=== PATIENT | male | born 1990 | race American Indian/Alaskan Native ===

== ENCOUNTER 2023-06-28 14:56 | Inpatient (IN) | payer MEDICAID ==
--- OUTSIDE RECORDS SUMMARY | 2023-06-28 14:59 | XMS REPORT | Continuity of Care Document ---
Author Name Unknown Address [address] [facility]. [address] [place] [address] [facility] thconnect Address [address] [facility] [address] [place] [address] Care Team Providers Care Stave And Bolt Equalizer Name Role Phone COLLINS PARKER Attending Clinician Unavailable AUNDREA XIE Attending Clinician Unavailable KRISTINA MARTIN Attending Clinician Unavailable JEANIE MARIA Attending Clinician Unava ilable CHRETIEN_F Attending Clinician Unavailable CHRETIEN_F Admitting Clinician Unavailable Payers Payer Name Policy Type Policy Number Effective Date Expirati on Date Source KCA SIGNATURE O 7 [id number] 2023 00:00:00 WE[employer]ARE [place] CLASSIC [place] PREMIUM R2T [id number] 2022 00:00:00 [employer] [place]MEDICARE REPLACEMENT/ADVANT AGE - HMO) [id number] 2022 00:00:00 Problems Condition Name Condition Details Condition Category Status Onset Date Resolution Date Last Treatment Date Treating Clinician Comments Source Abscess of back Abscess of back Disease Active 06-27 00:00: 00 Mitali Pereira Externa l Autism ([facility]) Autism ([facility]) Disease Active Mitali Wlilis - Externa l Obesity Obesity Disease Active Mitali Pereira Externa l Social History Social Habit Start Date Stop Date Quantity Comments Source Sexual orientation Laura Willis - External Alcoholic beverage intake 2023-06-28 00:00:00 2023-06-28 00:00:00 Current drinker of alcohol (finding) Mitali Willis - External History of Social function 2023-06-28 00:00:00 2023-06-28 00:00:00 Mitali Lamb Education - What is the highest level of school you have completed or the highest degree you have received? 2023-06-28 00:00:00 2023-06-28 00:00:00 Associate degree: academic program Mitali Pereira External Alcohol Comment 2023-06-28 00:00:00 2023-06-28 00:00:00 occasionally Mitali Willis - External Tobacco use and exposure 2022-05-18 00:00:00 2022-05-18 00:00:00 Smokeless tobacco non-user Mitali Willis - External Alcohol intake 2022-05-18 00:00:00 2022-05-18 00:00:00 Current drinker of alcohol (finding) Mitali Willis - Adonis Sex assigned at 1990 00:00:00 1990 00:00:00 Mitali Pereira External Smoking Status Start Date Stop Date Source Never smoked tobacco Mitali Willis - External Medications Ordered Medication Name Filled Medication Name Start Date Stop Date Current Medication? Ordering Clinician Indication Dosage Frequency Signature (SIG) Comments Components Source Cephalexin 500 MG oral Capsule 06-24 00:00: 00 Yes 500mg Take 1 capsule (500 mg total) by mouth 2 times daily. Mitali carrillo TRIMETHOPRI M-SULFAMETH OXAZOLE (BACTRIM DS) 800-160 MG oral Tablet 06-24 00:00: 00 Yes 1{tbl} Take 1 tablet by mouth every 12 hours. Mitali carrillo KETOCONAZOL E, TOPICAL, 2 % apply externally Shampoo 05-20 00:00: 00 06-27 00:00 :00 No [id number] 10mL Apply 10 mL topically twice a week Mitali carrillo methylPREDN ISolone 4 MG oral Tablet Therapy Pack 05-18 00:00: 00 Yes [id number] 1{luis} Take 1 luis by mouth See Admin Instructio ns Use as directed Mitali carrillo Benzonatate 100 MG oral Capsule 05-18 00:00: 00 06-27 00:00 :00 No [id number] 100mg [id number] 3D Take 1 capsule (100 mg total) by mouth every 8 hours as needed for cough Mitali carrillo Fluocinonid e 0.05 % apply externally Solution 05-18 00:00: 00 06-27 00:00 :00 No [id number] Apply 1 applicatio n. topically 2 times daily Mitali carrillo methylPREDN ISolone 4 MG oral Tablet Therapy Pack 05-18 00:00: 00 06-27 00:00 :00 No [id number] 1{luis} Take 1 luis by mouth See Admin Instructio ns Use as directed Mitali carrillo Azithromyci n 250 MG oral Tablet 05-18 00:00: 00 05-24 04:59 :00 No [id number] Take 2 tablets by mouth on day 1 then 1 tablet by mouth daily for 4 days thereafter . Mitali carrillo Immunizations Ordered Immunization Name Filled Immunization Name Date Status Comments Source Influenza Virus Vaccine, Quad, Egg Free 2021-02-03 00:00:00 Completed Mitali Pereira External Influenza Virus Vaccine, Quad, Egg Free Unknown Completed Mitali Pereira External Influenza Virus Vaccine, age 6 months and up Unknown Completed Mitali Pereira External Tdap- (Boostrix, Adacel) Unknown Completed Mitali Willis - External Vital Signs Vital Name Observation Time Observation Value Comments S ource Systolic blood pressure 2023-06-28 18:56:00 110 mm[Hg] Mitali Guan ld - External Diastolic blood pressure 2023-06-28 18:56:00 70 mm[Hg] Mitali myers - External Heart rate 2023-06-28 18:31:00 112 /min Cristi Willis - External Body temperature 2023-06-28 18:31:00 37.5 Tanya Mitali Willis - External Respiratory rate 2023-06-28 18:31:00 22 /min Mitali Willis - External Body height 2023-06-28 18:31:00 180.3 cm Taya Willis - External Body weight 2023-06-28 18:31:00 112.492 kg Taya ey Seybold - External BMI 2023-06-28 18:31:00 34.59 kg/m2 Taya ey Seybold - External Systolic blood pressure 2022-05-18 20:41:00 118 mm[Hg] Mitali Seybo ld - External Diastolic blood pressure 2022-05-18 20:41:00 60 mm[Hg] Mitali Bassybo ld - External Heart rate 2022-05-18 20:41:00 90 /min Cristi y Seybold - External Body temperature 2022-05-18 20:41:00 36.61 Tanya Mitali Seybold - External Respiratory rate 2022-05-18 20:41:00 16 /min Mitali Seybold - External Body height 2022-05-18 20:41:00 180.3 cm Taya ey Seybold - External Body weight 2022-05-18 20:41:00 110.678 kg Taya ey Seybold - External BMI 2022-05-18 20:41:00 34.03 kg/m2 Taya grover Seybold - External Oxygen saturation in Arterial blood by Pulse oximetry 2022-05-18 20:41:00 97 /min Mitali Sheltono ld - External Encounters Start Date/Time End Date/Time Encounter Type Admission Type Attending [facility] Facility Care Department Encounter ID Source 2023-07-04 14:20:00 2023-07-04 14:20:00 [id number] 13:00:00 2023-06-29 13:00:00 Outpatient COLLINS PARKER [id number] Mitali [facility] 2023-06-28 13:45:00 2023-06-28 13:45:00 Outpatient AUNDREA XIE [id number] Mitali [facility] 2023-06-25 00:00:00 2023-06-25 00:00:00 Outpatient KRISTINA MARTIN [id number] Mitali [facility] 2022-10-15 00:00:00 2022-10-15 00:00:00 Outpatient JEANIE MARIA [id number] Mitali [facility] 2022-05-18 16:00:00 2022-05-18 16:00:00 Outpatient JEANIE MARIA [id number] Mitali Willis 2022-05-04 00:00:00 2022-05-04 00:00:00 Outpatient CHRETIEN[facility]F [facility] [id number] [facility] 2022-05-04 00:00:00 2022-05-04 00:00:00 Outpatient CHRETIEN[facility]F [facility] [id number] [facility]
[2023-06-28 16:49] LABS: Absolute Eosinophils 0.4 K/uL (0-0.5); Absolute Lymphocytes (CBC) 1.9 K/uL (0.7-4.9); Absolute Monocytes 1.1 K/uL (0.1-1.3); Absolute Neutrophil 12.2 K/uL (1.8-8.0); Basophils % 0.3 % (0-1.3); Eosinophils % 2.3 % (0-4.4); Hematocrit 41.5 % (39.6-49.0); Hemoglobin 13.1 g/dL (13.6-17.9); Lymphocytes % 12.3 % (15.3-44.8); MCH 24.7 pg (27.0-35.0); MCHC 31.7 g/dL (32.0-36.0); MCV 77.9 fL (80-100); MPV 6.3 fL (7.6-11.3); Monocytes % 7.1 % (3.3-12.3); Platelets 529 thou/uL (152-406); RBC Red Blood Cell Count 5.33 M/uL (4.33-5.43); Red Cell Distribution Width 15.1 % (12.1-15.2)
[2023-06-28 16:52] LABS: PT Prothrombin Time 14.6 SECONDS (9.5-12.5); PTT, Activated Partial Thromb 28.1 SECONDS (24.3-36.9); Protime INR 1.34
[2023-06-28 17:03] LABS: Albumin 3.3 g/dL (3.4-5.0); Albumin/Globulin Ratio 0.7 (1.1-1.8); Anion Gap 9.8 mEq/L (5.0-15.0); Bilirubin Total 0.5 mg/dL (0.2-1.0); Globulin 4.8 g/dL (2.3-3.5); Potassium 3.8 mEq/L (3.5-5.1); Protein, Total 8.1 g/dL (6.4-8.2)
[2023-06-28] MEDS ORDERED: KETOROLAC 30 MG/ML INJ ONE (17:16)
[2023-06-28] MEDS ORDERED: CEFEPIME 1 GM/VIAL ONE (17:38)
[2023-06-28] MEDS ORDERED: NA CHLORIDE 0.9% 1,000 ML ONE (17:38)
--- NOTE | 2023-06-28 17:41 | ER ---
Nurse's Notes [facility] Name: Eugene Frazier Age: 32 yrs Sex: Male : 1990 Arrival Date: 06/28/2023 Time: 14:56 Bed 16 Private MD: Diagnosis: Cutaneous abscess, unspecified;Cellulitis of back [any part except buttock] Presentation: 06/27 15:06 Chief complaint: Patient states: pt was sent by doctor to look at an abscess on his as6 back. Coronavirus screen: At this time, the client does not indicate any symptoms associated with coronavirus-19. Ebola Screen: No symptoms or risks identified at this time. Initial Sepsis Screen: Does the patient meet any 2 criteria? HR > 90 bpm. Does the patient have a suspected source of infection? No. Patient's initial sepsis screen is negative. Risk Assessment: Do you want to hurt yourself or someone else? Patient reports no desire to harm self or others. Onset of symptoms was June 28, 2023. 15:06 Acuity: COLETTE 2 as6 15:06 Method Of Arrival: Ambulatory as6 Triage Assessment: 15:10 General: Appears uncomfortable, Behavior is cooperative, appropriate for age, flat. bp Pain: Complains of pain in back. EENT: No deficits noted. Derm: Abscess located on back. Historical: - Allergies: 15:06 No Known Allergies; as6 - PMHx: 15:06 None; as6 - PSHx: 15:06 None; as6 - Immunization history:: Adult Immunizations up to date. - Infectious Disease History:: Denies. - Social history:: Smoking status: Patient denies any tobacco usage or history of. Screenin:10 [facility] ED Fall Risk Assessment (Adult) History of falling in the last 3 months, bp including since admission No falls in past 3 months (0 pts). Abuse screen: Denies threats or abuse. Denies injuries from another. Nutritional screening: No deficits noted. Tuberculosis screening: No symptoms or risk factors identified. Assessment: 15:10 General: SEE TRIAGE NOTE. Pain: Complains of pain in back. Neuro: Level of bp Consciousness is awake, alert, obeys commands, Oriented to Appropriate for age. Derm: Abscess located on back. 17:00 Reassessment: No changes from previously documented assessment. Patient is alert, bp oriented x 3, equal unlabored respirations, skin warm/dry/pink. 18:10 Reassessment: REPORT FAXED TO 211. bp 19:00 General: Appears in no apparent distress. uncomfortable, Behavior is calm, cooperative. bp Pain: Complains of pain in back Pain does not radiate. Pain currently is 3 out of 10 on a pain scale. Quality of pain is described as stinging, Pain began suddenly, Is continuous. 19:00 Neuro: Level of Consciousness is awake, alert, obeys commands, Oriented to person, bp place, time, situation. Cardiovascular: Heart tones S1 S2 present Capillary refill < 3 seconds Clubbing of nail beds is absent JVD is absent Patient's skin is warm and dry. Respiratory: Airway is patent Trachea midline Respiratory effort is even, unlabored, Respiratory pattern is regular, symmetrical, Breath sounds are clear bilaterally. GI: Abdomen is round non-distended, Bowel sounds present X 4 quads. Abd is soft and non tender X 4 quads. : No deficits noted. No signs and/or symptoms were reported regarding the genitourinary system. EENT: No deficits noted. No signs and/or symptoms were reported regarding the EENT system. Derm: Skin is healthy with good turgor, Skin is dry, Skin is normal, Skin temperature is warm Abscess located on back. Musculoskeletal: Circulation, motion, and sensation intact. Range of motion: intact in all extremities. Vital Signs: 15:05 BP 135 / 85; Pulse 125; Resp 20 S; Temp 98.8(TE); Pulse Ox 100% on R/A; Weight 113.4 kg as6 (R); Height 5 ft. 11 in. (R); Pain 4/10; 17:00 BP 121 / 80; Pulse 106; Resp 16; Pulse Ox 100% ; bp 18:30 BP 123 / 88; Pulse 110; Resp 16; Pulse Ox 100% ; bp 19:00 BP 125 / 82; Pulse 105; Resp 17 S; Pulse Ox 100% on R/A; bp 15:05 Body Mass Index 34.87 (113.40 kg, 180.34 cm) as6 15:05 Pain Scale: Adult as6 ED Course: 15:02 Patient arrived in ED. mg5 15:03 Eddie Reddy PA is PHCP. cp 15:03 Tre Flood MD is Attending Physician. cp 15:06 Arm band placed on right wrist. as6 15:07 Triage completed. as6 15:10 Patient has correct armband on for positive identification. bp 15:10 No provider procedures requiring assistance completed. Patient admitted, IV remains in bp place. 15:31 Bipin Etienne, RN is Primary Nurse. bp 16:34 Inserted saline lock: 22 gauge in left forearm, using aseptic technique. Blood bp collected. 16:34 CBC with Diff Sent. bp 16:34 CMP Sent. bp 16:34 Lactate w/ 2H reflex if indic. Sent. bp 16:34 Protime (+inr) Sent. bp 16:34 Ptt, Activated Sent. bp 16:52 CBC with Diff Sent. bp 16:52 CMP Sent. bp 16:52 Lactate w/ 2H reflex if indic. Sent. bp 16:52 Protime (+inr) Sent. bp 16:52 Ptt, Activated Sent. bp 17:39 Alpa Barger MD is Hospitalizing Provider. cp 17:54 Blood Culture Adult (2) Sent. bp 17:55 XRAY Chest (1 view) In Process Unspecified. EDMS 19:00 Provided Education on: USE OF CALL LIGHT. bp Administered Medications: 17:00 Drug: Ketorolac IVP 15 mg IVP once Route: IVP; Site: left forearm; bp 18:51 Follow up: Response: No adverse reaction bp 17:30 Drug: NS 0.9% IV 1000 ml IV at 1 bolus Per protocol; 1000 mL bolus Route: IV; Rate: 1 bp bolus; Site: left forearm; 18:51 Follow up: IV Status: Completed infusion; IV Intake: 1000ml bp 17:54 Drug: Cefepime IVPB 1 grams IVPB at 200 ml/hr once over 30 mins; (mix in NS 100 mL) bp Route: IVPB; Rate: 200 ml/hr; Infused Over: 30 mins; Site: left forearm; 18:50 Follow up: IV Status: Completed infusion; IV Intake: 100ml bp 19:06 Not Given (SENT TO FLOOR WITH PATIENT): vancomycin1.5 grams IVPB at calculated rate oncebp Medication: 18:51 VIS not applicable for this client. bp Intake: 18:50 IV: 100ml; Total: 100ml. bp 18:51 IV: 1000ml; Total: 1100ml. bp Outcome: 17:40 Decision to Hospitalize by Provider. cp 18:50 Admitted to Med/surg accompanied by tech, family with patient, via wheelchair, room bp 211, 18:50 Condition: stable 18:50 Instructed on the need for admit, 19:10 Patient left the ED. bp Signatures: Dispatcher [employer] EDMS Eddie Reddy PA PA cp Peltier, Brian RN RN bp Jonathan Germain RN RN as6 [place] [address]
--- NOTE | 2023-06-28 17:41 | EDPHYS ---
Physician Documentation [facility] Name: Eugene Frazier Age: 32 yrs Sex: Male : 1990 Arrival Date: 06/28/2023 Time: 14:56 Bed 16 Private MD: ED Physician Tre Flood HPI: 06/27 15:45 This 32 yrs old Male presents to ER via Ambulatory with complaints of cp Boil. 15:45 The patient presents with an abscess of the upper back. cp 15:45 Description: tense, warm. Onset: The symptoms/episode began/occurred gradually. cp Associated signs and symptoms: Pertinent negatives: discharge, drainage, fever. Patient sent to ED for evaluation of abscess to upper back. Currently taking prescribed Keflex and Bactrim. Reports abscess previously drained. Historical: - Allergies: 15:06 No Known Allergies; as6 - PMHx: 15:06 None; as6 - PSHx: 15:06 None; as6 - Immunization history:: Adult Immunizations up to date. - Infectious Disease History:: Denies. - Social history:: Smoking status: Patient denies any tobacco usage or history of. ROS: 15:50 Constitutional: Negative for body aches, chills, fever, poor PO intake, cp 15:50 Cardiovascular: Negative for chest pain, palpitations, cp 15:50 Respiratory: Negative for cough, shortness of breath, wheezing, 15:50 Abdomen/GI: Negative for abdominal pain, nausea, vomiting, and diarrhea, 15:50 Skin: Positive for abscess, cellulitis, of the upper back, 15:50 All other systems are negative, Exam: 15:55 Constitutional: The patient appears in no acute distress, alert, awake, cp non-diaphoretic, non-toxic, well developed, well nourished, obese, 15:55 Head/Face: Normocephalic, atraumatic. cp 15:55 Eyes: Periorbital structures: appear normal, Conjunctiva: normal, no exudate, no injection, Sclera: no appreciated abnormality, Lids and lashes: appear normal, bilaterally, 15:55 ENT: External ear(s): are unremarkable, Nose: is normal, Mouth: Lips: moist, Oral mucosa: pink and intact, moist, Posterior pharynx: Airway: normal, 15:55 Chest/axilla: Inspection: normal, 15:55 Cardiovascular: Rate: tachycardic, Rhythm: regular, 15:55 Respiratory: the patient does not display signs of respiratory distress, Respirations: normal, no use of accessory muscles, no retractions, labored breathing, is not present, Breath sounds: are clear throughout, no decreased breath sounds, no stridor, no wheezing, 15:55 Abdomen/GI: Exam negative for discomfort, distension, guarding, Inspection: abdomen appears normal, 15:55 Back: pain, that is mild, of the upper back, baseball size abscess with induration, mild erythema, Vital Signs: 15:05 BP 135 / 85; Pulse 125; Resp 20 S; Temp 98.8(TE); Pulse Ox 100% on R/A; Weight 113.4 kg as6 (R); Height 5 ft. 11 in. (R); Pain 4/10; 17:00 BP 121 / 80; Pulse 106; Resp 16; Pulse Ox 100% ; bp 18:30 BP 123 / 88; Pulse 110; Resp 16; Pulse Ox 100% ; bp 19:00 BP 125 / 82; Pulse 105; Resp 17 S; Pulse Ox 100% on R/A; bp 15:05 Body Mass Index 34.87 (113.40 kg, 180.34 cm) as6 15:05 Pain Scale: Adult as6 MDM: 15:20 Patient medically screened. cp 17:45 Data reviewed: vital signs, nurses notes, lab test result(s), and as a result, I will cp admit patient. 17:45 Differential diagnosis: abscess, allergic reaction, cellulitis, insect bite. Management cp of patient was discussed with the following: Medical Insurance Collector: DR Tao will consult and patient to be admitted to services of hospitalist, requests npo after midnight and OR requests for 0900 tomorrow. 06/27 15:30 Order name: CBC with Diff; Complete Time: 17:03 cp 06/27 17:03 Interpretation: Normal except: WBC 15.70; HGB 13.1; MCV 77.9; MCH 24.7; MCHC 31.7; PLT cp 529; MPV 6.3; SETH% 78.0; LYM% 12.3; NEUT A 12.2. 06/27 15:30 Order name: CMP; Complete Time: 17:03 cp 04/30 17:04 Interpretation: Normal except: NA 133. cp 06/27 15:30 Order name: Lactate w/ 2H reflex if indic.; Complete Time: 17:03 cp 06/27 15:30 Order name: Protime (+inr); Complete Time: 17:03 cp 06/27 15:30 Order name: Ptt, Activated; Complete Time: 17:03 cp 06/27 16:42 Order name: Glucose, Ancillary Testing; Complete Time: 17:03 EDMS 06/27 17:05 Order name: Blood Culture Adult (2) cp 06/27 18:01 Order name: Urinalysis w/ reflexes EDMS 06/27 18:01 Order name: Basic Metabolic Panel EDMS 06/27 18:01 Order name: Basic Metabolic Panel EDMS 06/27 18:01 Order name: Basic Metabolic Panel EDMS 06/27 18:01 Order name: Basic Metabolic Panel EDMS 06/27 18:01 Order name: CBC with Automated Diff EDMS 06/27 18:01 Order name: CBC with Automated Diff EDMS 06/27 18:01 Order name: CBC with Automated Diff EDMS 06/27 18:01 Order name: CBC with Automated Diff EDMS 06/27 18:01 Order name: Magnesium EDMS 06/27 18:01 Order name: Magnesium EDMS 06/27 18:01 Order name: Magnesium EDMS 06/27 18:01 Order name: Magnesium EDMS 06/27 17:03 Order name: XRAY Chest (1 view); Complete Time: 18:20 cp 06/27 18:20 Interpretation: Report review. cp 06/27 15:30 Order name: EKG; Complete Time: 15:30 cp 06/27 15:30 Order name: Accucheck; Complete Time: 16:34 cp 06/27 15:30 Order name: Cardiac monitoring; Complete Time: 15:32 cp 30 15:30 Order name: EKG - Nurse/Tech; Complete Time: 16:19 cp 06/27 15:30 Order name: IV Saline Lock - Large Bore; Complete Time: 16:34 cp 30 15:30 Order name: Labs collected and sent; Complete Time: 16:34 cp 30 15:30 Order name: O2 Per Protocol; Complete Time: 15:32 cp 06/27 15:30 Order name: O2 Sat Monitoring; Complete Time: 15:32 cp 06/27 15:30 Order name: Vital Signs; Complete Time: 15:32 cp Administered Medications: 17:00 Drug: Ketorolac IVP 15 mg IVP once Route: IVP; Site: left forearm; bp 18:51 Follow up: Response: No adverse reaction bp 17:30 Drug: NS 0.9% IV 1000 ml IV at 1 bolus Per protocol; 1000 mL bolus Route: IV; Rate: 1 bp bolus; Site: left forearm; 18:51 Follow up: IV Status: Completed infusion; IV Intake: 1000ml bp 17:54 Drug: Cefepime IVPB 1 grams IVPB at 200 ml/hr once over 30 mins; (mix in NS 100 mL) bp Route: IVPB; Rate: 200 ml/hr; Infused Over: 30 mins; Site: left forearm; 18:50 Follow up: IV Status: Completed infusion; IV Intake: 100ml bp 19:06 Not Given (SENT TO FLOOR WITH PATIENT): vancomycin1.5 grams IVPB at calculated rate oncebp Disposition Summary: 06/28/23 17:40 Hospitalization Ordered Notes: Hospitalization Status: Inpatient Admission cp Provider: Alpa Barger cp Location: Telemetry/MedSurg (Inpatient) cp Condition: Stable cp Problem: new cp Symptoms: have improved cp Bed/Room Type: Standard Room Assignment: 211(06/28/23 18:03) bd Diagnosis - Cutaneous abscess, unspecified cp - Cellulitis of back [any part except buttock] cp Forms: - Medication Reconciliation Form cp - SBAR form cp - Leadership Thank You Letter cp Addendum: 06/30/2023 07:04 Co-signature as Attending Physician, Tre Flood MD I reviewed the patient's care r n provided by the Advanced Practice Provider and agree with the diagnosis and treatment plan. Signatures: Dispatcher [employer] EDMS Helen Jordan Roman, MD MD rn Page, Corey, PA PA cp Bipin Etienne RN RN bp Slawson, Ashby, RN RN as6 Corrections: (The following items were deleted from the chart) 06/27 15:30 15:30 CBC+H.LAB.BRZ ordered. EDMS EDMS 15:30 15:30 COMPREHENSIVE METABOLIC PANEL+C.LAB.BRZ ordered. EDMS EDMS 15:30 15:30 LACTATE+C.LAB.BRZ ordered. EDMS EDMS 15:30 15:30 PROTIME (+INR)+COAG.LAB.BRZ ordered. EDMS EDMS 15:30 15:30 PTT, ACTIVATED+COAG.LAB.BRZ ordered. EDMS EDMS 18:03 17:40 cp bd
--- NOTE | 2023-06-28 17:50 | P.HP ---
Certification for Inpatient Patient admitted to: Inpatient Practitioner: I am a practitioner with admitting privileges, knowledge of patient current condition, hospital course, and medical plan of care. Services: Services provided to patient in accordance with Admission requirements found in Title 42 Section 412.3 of the Code of Federal Regulations Patient History Date of Service: 06/28/23 Reason for admission: Cellulitis History of Present Illness: 32-year-old male with no significant past medical history presented to the emergency room with cellulitis, abscess to his back that is progressively gotten worse over the last 24 to 48 hours. He denies fever, he reports pain to palpitation. No reported fever, nausea vomiting diarrhea, plan to admit for Cutaneous abscess, unspecified, Cellulitis of back, surgery consulted. laboratory evaluation WBCs 15.70, thrombocytosis elevated platelets 529, chest x-ray, The lungs are underinflated but grossly clear. The heart is mildly prominent in size. No displaced fractures. Review of Systems Per HPI Physical Examination - Physical Exam General: Alert, In no apparent distress, Oriented x3 HEENT: Atraumatic, Normocephalic Neck: 2+ carotid pulse no bruit, JVD not distended Respiratory: Clear to auscultation bilaterally, Normal air movement Cardiovascular: No edema, Normal pulses Capillary refill: <2 Seconds Gastrointestinal: Normal bowel sounds, Soft and benign Musculoskeletal: No clubbing, No swelling Integumentary: Erythema, Warmth, Other (Cellulitis of the back ) Neurological: Normal speech, Normal strength at 5/5 x4 extr - Studies Laboratory Data (last 24 hrs) 06/28/23 06/28/23 06/28/23 16:30 16:30 16:30 WBC 15.70 H Hgb 13.1 L Hct 41.5 Plt Count 529 H PT 14.6 H INR 1.34 APTT 28.1 Sodium 133 L Potassium 3.8 BUN 11 Creatinine 0.95 Glucose 87 Total Bilirubin 0.5 AST 26 ALT 44 Alkaline Phosphatase 80 Assessment and Plan - Plan Assessment/Plan Cellulitis Back abscess IV vancomycin, IV cefepime, Wound culture, chest x-ray the lungs are underinflated but grossly clear. The heart is mildly prominent in size. No displaced fractures. Surgery consulted. NPO after midnight Full code Diet regular DVT Lovenox Disposition Home independent prior Discharge Plan: Home - Advance Directives Does patient have a Living Will: No Does patient have a Durable POA for Healthcare: No - Code Status/Comfort Care Code Status: Full Code Critical Care: No Time Spent Managing Pts Care (In Minutes): 55
[2023-06-28] MEDS ORDERED: ONDANSETRON 4 MG/2 ML VIAL IV PRN (17:57)
[2023-06-28] MEDS ORDERED: VANCOMYCIN 1.5 GM in NA CHLORIDE 0.9% 500 ML IVPB ONE (18:00)
--- NOTE | 2023-06-28 18:05 | RAD REPORT ---
EXAM DESCRIPTION: RAD - Chest Single View - 06/28/2023 5:53 pm CLINICAL HISTORY: COUGH Chest pain. COMPARISON: No comparisons FINDINGS: Portable technique limits examination quality. The lungs are underinflated but grossly clear. The heart is mildly prominent in size. No displaced fr actures.
[2023-06-28] MEDS ORDERED: VANCOMYCIN 2 GM in NA CHLORIDE 0.9% 500 ML IVPB SCH (20:00)
[2023-06-28 20:03] VITALS: BMI 33.9
[2023-06-28] MEDS ORDERED: VANCOMYCIN 1.25 GM in NA CHLORIDE 0.9% 250 ML IVPB SCH (21:00)
[2023-06-28] MEDS: VANCOMYCIN 1.5 GM in NA CHLORIDE 0.9% 500 ML IVPB ONE (21:00)
[2023-06-28] MEDS: VANCOMYCIN 500 MG in NA CHLORIDE 0.9% 100 ML IV ONE (21:00)
[2023-06-29] MEDS: ZOLPIDEM TARTRATE 5 MG TABLET PO PRN (00:19)
[2023-06-29] MEDS: CODEINE 30MG/APAP 300MG TAB PO PRN (00:19)
[2023-06-29] MEDS: CEFEPIME 2 GM in NA CHLORIDE 0.9% 100 ML IV SCH (05:52)
--- NOTE | 2023-06-29 07:08 | P.PN ---
Subjective Date of Service: 06/29/23 Chief Complaint: Cellulitis Admitted with cellulitis of the back, n.p.o. for surgery to eval on IV antibiotic Reports cellulitis for 4 to 5 days, failed outpatient treatment for p.o. antibiotics on Bactrim Pain controlled with as needed analgesic Review of Systems Per HPI Physical Examination - Vital Signs Temperature: 98.7 F Blood Pressure: 123/72 Pulse: 101 Respirations: 18 Pulse Ox (%): 100 - Physical Exam General: Alert, In no apparent distress, Oriented x3 HEENT: Atraumatic, Normocephalic Neck: 2+ carotid pulse no bruit, JVD not distended Cardiovascular: Normal pulses, Regular rate/rhythm Gastrointestinal: Hypoactive, Soft and benign Musculoskeletal: No swelling, No contractures Integumentary: Other (Cellulitis to left shoulder, redness, tender, mild edema) Neurological: Normal speech, Normal strength at 5/5 x4 extr - Studies Laboratory Data (last 24 hrs) 06/28/23 06/28/23 06/28/23 16:30 16:30 16:30 WBC 15.70 H Hgb 13.1 L Hct 41.5 Plt Count 529 H PT 14.6 H INR 1.34 APTT 28.1 Sodium 133 L Potassium 3.8 BUN 11 Creatinine 0.95 Glucose 87 Total Bilirubin 0.5 AST 26 ALT 44 Alkaline Phosphatase 80 Assessment And Plan - Plan Assessment/Plan Cellulitis Back abscess Failed outpatient treatment of p.o. antibiotics Bactrim IV vancomycin, IV cefepime, Wound culture, chest x-ray the lungs are underinflated but grossly clear. The heart is mildly prominent in size. No displaced fractures. Surgery consulted. NPO after midnight Full code Diet regular DVT Lovenox Disposition Home independent prior Discharge Plan: Home - Code Status/Comfort Care Code Status: Full Code Critical Care: No Time Spent Managing PTS Care (In Minutes): 35
[2023-06-29] MEDS: VANCOMYCIN 2 GM in NA CHLORIDE 0.9% 500 ML IVPB SCH (08:18)
[2023-06-29 08:30] LABS: Absolute Basophils 0.1 K/uL (0-0.5); Absolute Eosinophils 0.4 K/uL (0-0.5); Absolute Lymphocytes (CBC) 2.6 K/uL (0.7-4.9); Absolute Monocytes 0.9 K/uL (0.1-1.3); Absolute Neutrophil 9.6 K/uL (1.8-8.0); Basophils % 0.4 % (0-1.3); Eosinophils % 3.2 % (0-4.4); Hematocrit 39.3 % (39.6-49.0); Lymphocytes % 19.3 % (15.3-44.8); MCH 25.9 pg (27.0-35.0); MCHC 33.1 g/dL (32.0-36.0); MCV 78.1 fL (80-100); MPV 6.1 fL (7.6-11.3); Monocytes % 6.6 % (3.3-12.3); Neutrophils % 70.5 % (41.7-73.7); Nucleated Red Blood Cells % 0.2 % (0-0); Platelets 480 thou/uL (152-406); RBC Red Blood Cell Count 5.02 M/uL (4.33-5.43)
[2023-06-29 08:44] LABS: Anion Gap 8.2 mEq/L (5.0-15.0); Potassium 4.2 mEq/L (3.5-5.1)
[2023-06-29] MEDS: Ringers Lactate 1,000 ML IV ONE (08:54)
--- NOTE | 2023-06-29 08:56 | P.CNS ---
Date of Consult: 06/29/23 Reason for consult: Left back abscess History of present illness: Patient is a 32-year-old gentleman who presented to the emergency room with 5-day history of left upper back infection. Patient went to the urgent care on Tuesday and had a needle placed in the. Patient follow-up with his PCP on Tuesday and was advised to go to the emergency room as the abscess has become very large. Patient denies any discharge. Patient denies any fever or chills. He is complaining of pain and discomfort. Patient was admitted for IV antibiotics and I was consulted. Review of systems: Otherwise unremarkable Past medical history: Negative Past surgical history: Negative Allergies: None Social history: Patient denies smoking, drinks occasionally Family history: Negative Vital signs: Stable, afebrile Physical exam: Awake, alert and oriented x 3 Head and neck exam: No masses Chest: Clear Heart: S1-S2 Abdomen: Soft Extremity: Neurovascularly intact Neuro: Nonfocal Back: Left upper back with approximately 10 x 15 cm area of edema, erythema, warmth and central fluctuance with significant tenderness. Diagnostic data: White count is 15.7 with a left shift, lactic acid was within normal limits Assessment: Left upper back abscess and cellulitis Plan/recommendation: Admit, n.p.o., IV fluids, IV antibiotics and to the OR for incision, drainage and debridement of left upper back abscess. Patient understands risk, benefits and alternatives and agrees to procedure. CC: Dr. High' office
[2023-06-29] MEDS ORDERED: CEFEPIME 2 GM in NA CHLORIDE 0.9% 100 ML IV SCH (09:00)
[2023-06-29] MEDS ORDERED: propofoL 200 MG/20 ML VIAL IV ONE (09:58)
[2023-06-29] MEDS ORDERED: LIDOCAINE 1% MPF 5 ML VIAL ONE (09:58)
[2023-06-29] MEDS ORDERED: MIDAZOLAM HCL 2 MG/2 ML INJ ONE (09:59)
[2023-06-29] MEDS ORDERED: FENTANYL CITR 100 MCG/2 ML ONE (09:59)
[2023-06-29] MEDS: BUPIVACAINE 0.5% PF 10 ML VIAL ONE ×2 (10:10→10:50)
[2023-06-29] MEDS ORDERED: KETOROLAC 30 MG/ML INJ ONE (10:38)
[2023-06-29] MEDS ORDERED: ONDANSETRON 4 MG/2 ML VIAL ONE (10:38)
[2023-06-29] MEDS ORDERED: dexAMETHasone 10 MG/ML VIAL ONE (10:38)
--- NOTE | 2023-06-29 11:25 | P.OP ---
Date of Service: 06/29/23 Preop diagnosis: Left upper back abscess with cellulitis Postop diagnosis: Same, necrotizing infection of the left upper back Procedure performed: Excisional debridement of a necrotizing infection of the left upper back 10 x 6 cm down to the muscle layer with pulse irrigation Surgeon: James Tao MD Larriman: None Estimated blood loss: Minimal Specimen: Pus and infected tissue Findings: As above Anesthesia: General Complications: None Drains: None Fluids and blood products: Nonapplicable Disposition: Recovery room Operative note: Patient brought to the OR and placed in supine position. General anesthesia began. Patient placed in the right lateral position. 0.5% Marcaine infiltrated in a field block fashion. 15 blade used to make approximately a 10 x 6 cm incision around a central focus of punctum with pus oozing. Dissection proceeded through the deep subcutaneous tissue and necrotizing infection was encountered. Sharp dissection was used all the way down to the muscle to excise all of the necrosis of the subcutaneous tissue. Pulse irrigation was used with Betadine and then with normal saline. Bleeding controlled with cautery. After complete dissection, healthy tissue remained. Wet-to-dry normal saline dressing change applied. Sterile dressing applied and patient awakened. Patient taken to recovery room in good general condition. CC: Dr. High' office
[2023-06-29 12:13] VITALS: O2SAT 99
--- NOTE | 2023-06-29 13:09 | EKG ---
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
[2023-06-29] MEDS: HYDROMORPHONE HCL 1 MG/ML INJ IV PRN (15:45)
[2023-06-30 07:12] LABS: Absolute Lymphocytes (CBC) 1.4 K/uL (0.7-4.9); Absolute Monocytes 0.9 K/uL (0.1-1.3); Absolute Neutrophil 14.9 K/uL (1.8-8.0); Basophils % 0.3 % (0-1.3); Hematocrit 36.7 % (39.6-49.0); Hemoglobin 11.9 g/dL (13.6-17.9); MCH 25.3 pg (27.0-35.0); MCHC 32.5 g/dL (32.0-36.0); MCV 77.9 fL (80-100); MPV 6.2 fL (7.6-11.3); Monocytes % 5.4 % (3.3-12.3); Neutrophils % 86.3 % (41.7-73.7); Nucleated Red Blood Cells % 0.1 % (0-0); Platelets 492 thou/uL (152-406); RBC Red Blood Cell Count 4.71 M/uL (4.33-5.43); Red Cell Distribution Width 14.5 % (12.1-15.2)
[2023-06-30 07:35] LABS: Anion Gap 8.3 mEq/L (5.0-15.0); Magnesium 2.1 mg/dL (1.6-2.4); Potassium 4.3 mEq/L (3.5-5.1)
[2023-06-30 08:14] LABS: Blood Morphology Comment NOTED (NOT SEEN); Microcytosis 1+; Platelet Estimate INCR; White Blood Cell Scan OK (OK)
--- NOTE | 2023-06-30 08:55 | P.PN ---
Subjective Date of Service: 06/30/23 Chief Complaint: Cellulitis Admitted with cellulitis of the back, leukocytosis overnight on IV antibiotic on vancomycin, cefepime Reports cellulitis for 4 to 5 days, failed outpatient treatment for p.o. antibiotics on Bactrim Pain controlled with as needed analgesic 06/28 Excisional debridement of a necrotizing infection of the left upper back 10 x 6 cm down to the muscle layer with pulse irrigation by surgery - Physical Exam General: Alert, In no apparent distress, Oriented x3 HEENT: Atraumatic, Normocephalic Neck: 2+ carotid pulse no bruit, JVD not distended Cardiovascular: Normal pulses, Regular rate/rhythm Gastrointestinal: Hypoactive, Soft and benign Musculoskeletal: No swelling, No contractures Integumentary: Other (Cellulitis to left shoulder, redness, tender, mild edema) Neurological: Normal speech, Normal strength at 5/5 x4 extr Review of Systems per HPI Physical Examination - Vital Signs Temperature: 97.4 F Blood Pressure: 132/68 Pulse: 96 Respirations: 17 Pulse Ox (%): 97 Assessment And Plan - Plan Assessment/Plan Cellulitis Back abscess Failed outpatient treatment of p.o. antibiotics Bactrim IV vancomycin, IV cefepime, prn analgesics Wound culture, on vancomycin, cefepime chest x-ray the lungs are underinflated but grossly clear. The heart is mildly prominent in size. No displaced fractures. Surgery consult status post ID [email or web address] Excisional debridement of a necrotizing infection of the left upper back 10 x 6 cm down to the muscle layer with pulse irrigation Dr Tao wound cultures pending blood cultures no growth Full code Diet regular DVT Lovenox Disposition Home independent prior Discharge Plan: Home - Code Status/Comfort Care Code Status: Full Code Critical Care: No Time Spent Managing PTS Care (In Minutes): 35
[2023-06-30] MEDS ORDERED: VANCOMYCIN 1.25 GM in NA CHLORIDE 0.9% 250 ML IVPB SCH (09:00)
--- NOTE | 2023-06-30 14:47 | PN ---
Date of Progress Note: 06/30/2023 Subjective: Patient is awake and alert. No complaint. Vitals stable, afebrile. Cultures are pendi ng. White count is 17.2 with a left shift. Examination of the wound reveals minimal oozing from the skin edges, which was easily cauterized by silver nitrate. There is no purulence. There is decreas ing erythema and warmth. The wound is clean. Assessment: Status post excision and debridement of necrotizing infection. Recommendations: Continue antibiotics as ordered. Check cultures. Adjust antibiotics. Patient is going to be able to be discharged on oral antibiotics based on the cultures. Wound VAC to start adriano rrow. Home Health in progress. Discharge planning in progress. The patient is clinically stable an d doing well. /MODL Voice ID: [id number] Report ID: [id number]
[2023-06-30] MEDS: HYDROCODONE/APAP 7.5/325 MG TAB PO PRN (18:35)
[2023-07-01 10:00] LABS: Anion Gap 7.7 mEq/L (5.0-15.0); Magnesium 2.2 mg/dL (1.6-2.4); Potassium 3.7 mEq/L (3.5-5.1)
[2023-07-01 10:03] LABS: Absolute Basophils 0.1 K/uL (0-0.5); Absolute Eosinophils 0.3 K/uL (0-0.5); Absolute Lymphocytes (CBC) 3.9 K/uL (0.7-4.9); Absolute Monocytes 0.7 K/uL (0.1-1.3); Absolute Neutrophil 9.6 K/uL (1.8-8.0); Basophils % 0.4 % (0-1.3); Eosinophils % 1.7 % (0-4.4); Hematocrit 37.9 % (39.6-49.0); Hemoglobin 12.2 g/dL (13.6-17.9); Lymphocytes % 26.9 % (15.3-44.8); MCHC 32.1 g/dL (32.0-36.0); MPV 6.4 fL (7.6-11.3); Platelets 509 thou/uL (152-406); RBC Red Blood Cell Count 4.86 M/uL (4.33-5.43); Red Cell Distribution Width 14.7 % (12.1-15.2)
[2023-07-01] MEDS ORDERED: BISACODYL E.C. 5 MG TAB PO SCH (10:26)
[2023-07-01] MEDS ORDERED: MAGNESIUM HYDROXIDE 8% 30 ML PO PRN (10:26)
--- NOTE | 2023-07-01 19:17 | P.PN ---
Subjective Date of Service: 07/01/23 Chief Complaint: Cellulitis Admitted with cellulitis of the back, leukocytosis overnight on IV antibiotic on vancomycin, cefepime Complaining of constipation pain control as needed analgesics Reports cellulitis for 4 to 5 days, failed outpatient treatment for p.o. antibiotics on Bactrim Pain controlled with as needed analgesic 06/28 Excisional debridement of a necrotizing infection of the left upper back 10 x 6 cm down to the muscle layer with pulse irrigation by surgery - Physical Exam General: Alert, In no apparent distress, Oriented x3 HEENT: Atraumatic, Normocephalic Neck: 2+ carotid pulse no bruit, JVD not distended Cardiovascular: Normal pulses, Regular rate/rhythm Gastrointestinal: Hypoactive, Soft and benign Musculoskeletal: No swelling, No contractures Integumentary: Other (Cellulitis to left shoulder, redness, tender, mild edema) surgical dressing, large post I&D wound Neurological: Normal speech, Normal strength at 5/5 x4 extr Review of Systems Per HPI Physical Examination - Vital Signs Temperature: 97.7 F Blood Pressure: 116/74 Pulse: 84 Respirations: 16 Pulse Ox (%): 98 Assessment And Plan - Plan Assessment/Plan Cellulitis Back abscess Failed outpatient treatment of p.o. antibiotics Bactrim IV vancomycin, IV cefepime, prn analgesics Wound culture, on vancomycin, cefepime chest x-ray the lungs are underinflated but grossly clear. The heart is mildly prominent in size. No displaced fractures. Surgery consult status post ID [email or web address] Excisional debridement of a necrotizing infection of the left upper back 10 x 6 cm down to the muscle layer with pulse irrigation Dr Tao wound cultures pending blood cultures no growth Constipation PRNs stool softeners ordered Full code Diet regular DVT Lovenox Disposition Home independent prior Discharge Plan: Home Critical Care: No Time Spent Managing PTS Care (In Minutes): 35
--- NOTE | 2023-07-01 19:17 | P.DS ---
Admission Date: 06/28/23 Discharge Date: 07/01/23 Disposition: DC HOME/HOME HEALTH CARE Reason for Admission: Cellulitis Brief History of Present Illness: 32-year-old male with no significant past medical history presented to the emergency room with cellulitis, abscess to his back that is progressively gotten worse over the last 24 to 48 hours. He denies fever, he reports pain to palpitation. No reported fever, nausea vomiting diarrhea, plan to admit for Cutaneous abscess, unspecified, Cellulitis of back, surgery consulted. laboratory evaluation WBCs 15.70, thrombocytosis elevated platelets 529, chest x-ray, The lungs are underinflated but grossly clear. The heart is mildly prominent in size. No displaced fractures. - Physical Exam General: Alert, In no apparent distress, Oriented x3 HEENT: Atraumatic, Normocephalic Neck: 2+ carotid pulse no bruit, JVD not distended Respiratory: Clear to auscultation bilaterally, Normal air movement Cardiovascular: No edema, Normal pulses Capillary refill: <2 Seconds Gastrointestinal: Normal bowel sounds, Soft and benign Musculoskeletal: No clubbing, No swelling Integumentary: Erythema, Warmth, Other (Cellulitis of the back ) Neurological: Normal speech, Normal strength at 5/5 x4 extr Hospital Course: 32 year-old patient presented with cellulitis to the back. Was noted to have large abscess. He was evaluated by surgery Condition improved with incision and drainage of abscess. Wound care. IV antibiotics, as needed analgesics. Patient tolerating diet, stable for discharge to home with follow-up appointment with primary care physician. Follow-up with surgery after discharge. Plan to discharge home with home health to do dressing changes, with p.o. antibiotics, wound VAC post I&D PROBLEM: Left upper back abscess and cellulitis (Left upper back with approximately 10 x 15 cm area of edema, erythema, warmth and central fluctuance with significant tenderness) 5/ Status post incision and drainage evaluated by surgery, Follow-up with Dr. Tao call office to schedule appoint Rad/Lab/Micro: Blood cultures no growth Wound culture gram-positive cocci Continue home medicines as previously prescribed GOAL: Clear understanding of disease process INSTRUCTIONS: Physician Discharge Instructions: -Follow-up with PCP in 1 to 2 weeks -Please call Dr. Barger at [phone] if any questions regarding hospital stay -Please call nursing station at [phone] if any nursing or medication questions -Return to the emergency room if symptoms worsen Diet: ADA, low sodium Activity: Fall precautions Vital Signs/Physical Exam: Temp Pulse Resp BP Pulse Ox 97.7 F 84 16 116/74 98 07/01/23 10:25 07/01/23 10:25 07/01/23 10:25 07/01/23 10:25 07/01/23 10:25 Laboratory Data at Discharge: WBC 17.20 thou/uL (4.3-10.9) H 06/30/23 06:50 Hgb 11.9 g/dL (13.6-17.9) L D 06/30/23 06:50 Hct 36.7 % (39.6-49.0) L 06/30/23 06:50 Plt Count 492 thou/uL (152-406) H 06/30/23 06:50 PT 14.6 SECONDS (9.5-12.5) H 06/28/23 16:30 INR 1.34 06/28/23 16:30 APTT 28.1 SECONDS (24.3-36.9) 06/28/23 16:30 Sodium 134 mEq/L (136-145) L 06/30/23 06:50 Potassium 4.3 mEq/L (3.5-5.1) 06/30/23 06:50 BUN 13 mg/dL (7-18) 06/30/23 06:50 Creatinine 0.82 mg/dL (0.70-1.30) 06/30/23 06:50 Glucose 315 mg/dL (74-106) H 06/30/23 06:50 Magnesium 2.1 mg/dL (1.6-2.4) 06/30/23 06:50 Total Bilirubin 0.5 mg/dL (0.2-1.0) 06/28/23 16:30 AST 26 U/L (15-37) 06/28/23 16:30 ALT 44 U/L (16-61) 06/28/23 16:30 Alkaline Phosphatase 80 U/L (45-117) 06/28/23 16:30 Home Medications: NK [No Home Meds] 06/30/23 Diet: AHA Activity: Fall precautions Followup: Brian High DO [Primary Care Provider] - Time spent managing pt's care (in minutes): 55
[2023-07-02 14:33] VITALS: BP 131/85; TEMP 99.4
== END 2023-07-01 15:30 | disposition home health service (06) | DRG 580 ==
LOC: ER 14:56 → 2ND 17:51
PROVIDERS: ADMIT Hospitalist; ATTEND Hospitalist
PROC: 0KBG0ZZ Excision of Left Trunk Muscle, Open Approach (ICD-10-PCS; principal; 2023-06-29 09:30)
DX: L03.312 Cellulitis of back [any part except buttock and flank] (principal); L03.114 Cellulitis of left upper limb; L02.212 Cutaneous abscess of back [any part, except buttock and flank]; K59.00 Constipation, unspecified
CPT/HCPCS: 36415; 71045; 80048; 80053; 80202; 82947; 83605; 83735; 85025; 85610; 85730; 87040; 87070; 87075; 87076; 87205; 88304; 93005; 96365; 96375; 99285; J0692; J1100; J1170; J2001; J2250; J2405; J2704; J3010; J7030; J7040; J7120